=== PATIENT | female | born 1990 | race African-American/Black ===

== ENCOUNTER 2019-09-05 19:55 | Emergency (ER) | payer SELFPAY ==
--- NOTE | ~2019-09-05 | CT_ITS ---
EXAMINATION: CT BRAIN W/O DATE: 09/05/2019 21:47 INDICATION: Dizziness. Syncope. TECHNIQUE: Computed tomography (CT) of the head was performed without intravenous contrast. The dose- length product was 605.33 mGy-cm. The mA was adjusted according to patient size. Iterative reconstruc tion technique was employed. COMPARISON: No prior studies for comparison. FINDINGS: Normal brain parenchymal volume for age. Normal vaughan-white differentiation. No acute intrac ranial hemorrhage, infarction, mass or mass effect. No ventriculomegaly or midline shift. Midline sagittal images demonstrate a normal corpus callosum, c raniovertebral junction and sella turcica. Basilar cisterns are patent. Paranasal sinuses and mastoids are pneumatized. No depressed skull fractures. IMPRESSION: 1. No acute intracranial abnormality. Reviewed, dictated and finalized at location A.
[2019-09-05 20:02] VITALS: BP 113/62; PULSE 58; RESP 16; TEMP 36.9; O2SAT 100
--- NOTE | 2019-09-05 20:04 | ECG_ITS ---
Measurements Intervals [place] Rate: 51 P: -17 SC: 146 QRS: 64 QRSD: 85 T: 57 QT: 379 QTc: 350 Interpretive Statements SINUS OR ECTOPIC ATRIAL BRADYCARDIA BASELINE ARTIFACT- I, III, AVL BORDERLINE ECG Electronically Signed On 09-06-2019 6:48:40 CDT by Buzz Falk D.O.
[2019-09-05 20:17] LABS: Basophils Percent Auto 0.6 % (0.2-1.2); Eosinophils Absolute Auto 0.1 K/mm3 (0-0.3); Eosinophils Percent Auto 1.2 % (0-4.4); Hematocrit 38.5 % (37.0-47.0); Hemoglobin 12.7 g/dL (12.0-15.0); Immature Granulocyte Absolute 0.02 K/mm3 (0.00-0.031); Immature Granulocyte Percent A 0.3 % (0-0.5); Lymphocytes Absolute Auto 1.57 K/mm3 (0.9-3.2); Lymphocytes Percent Auto 23.1 % (18.3-44.2); Mean Corpuscular Hemoglobin 31.1 pg (26-34); Mean Corpuscular Volume 94.1 fl (80-100); Mean Platelet Volume 9.4 fl (7.4-10.4); Monocytes Absolute Auto 0.5 K/mm3 (0.1-0.6); Monocytes Percent Auto 7.2 % (2.6-8.5); Neutrophils Absolute Auto 4.6 K/mm3 (1.3-6.7); Neutrophils Percent Auto 67.6 % (45.5-73.1); Platelet Count Result 302 k/mm3 (150-375); Red Blood Count 4.09 M/mm3 (4.2-5.4); Red Cell Distribution Width 13.2 % (11.5-14.5); White Blood Count 6.8 K/mm3 (4.5-10.0)
[2019-09-05 20:38] LABS: Blood Urea Nitrogen 10 mg/dL (7-17); Carbon Dioxide 22 mmol/L (22-30); Chloride 107 mmol/L (98-107); Estimated CRCL calculation 91 ml/min; Estimated Glomerular Filt Rate > 60; Glucose 95 mg/dL (65-105); Potassium 3.8 mmol/L (3.4-5.0); Sodium 135 mmol/L (137-145)
[2019-09-05 21:27] VITALS: BP 117/74
[2019-09-05 21:28] VITALS: BP 112/67; BP 117/74; PULSE 65; PULSE 67
[2019-09-05] MEDS: MECLIZINE HCL 25 MG TABLET PO (21:39)
[2019-09-05] MEDS: SODIUM CHLORIDE 0.9% IV 1,000 ML 999 ML (21:48)
--- NOTE | 2019-09-05 23:01 | ED.DIZZY ---
HPI - Dizziness General Chief Complaint: Syncope Stated Complaint: passed out at work, med release Time Seen by Provider: 09/05/19 21:23 History of Present Illness HPI Narrative: Patient is a 28-year-old female who presents ER after developing dizziness and losing consciousness at work. Patient reports she felt rotational dizziness and flushed and then people heard her hit the floor. She is confident she did lose consciousness but briefly. She has had intermittent symptoms of dizziness and flushed feeling over the last week where she will get nauseated. Symptoms are worsened by leaning forward or rolling over. Symptoms are also worse when leaning to the right while talking on the phone. Patient reports mild pain to left side of her head after striking it on the ground. Related Data Allergies Allergy/AdvReac Type Severity Reaction Status Date / Time No Known Allergies Allergy Unknown Verified 09/05/19 19:57 Review of Systems Review of Systems: All systems reviewed & are unremarkable except as noted in HPI and below Constitutional: Constitutional: Denies chills, Denies fever(s) and Denies weakness ENT: Reports dizziness, Denies nasal congestion and Denies sore throat Cardiovascular: Cardiovascular: Denies chest pain and Denies radiating jaw, neck or arm pain Neurologic: Reports dizziness, Reports syncope, Denies headache(s), Denies focal weakness and Denies numbness PMFSH Past Medical History Medical History (Updated 09/05/19 @ 23:06 by Mauricio Marcano MD) History of bipolar disorder Surgical History Surgical History (Updated 09/05/19 @ 23:03 by Mauricio Marcano MD) History of cholecystectomy Social History Social History Smoking status: Never smoker Alcohol intake: current Exam Narrative: Exam Narrative: GENERAL: Well-appearing, well-nourished, and in no acute distress. HEAD: Normocephalic, atraumatic. EYES: PERRLA and EOMI. ENT: Mucous membranes moist. TMs normal bilaterally and ear canals free of cerumen. CHEST: Clear to auscultation. No respiratory distress. HEART: Regular rate and rhythm. Normal peripheral pulses. ABDOMEN: Soft, nontender, nondistended. EXTREMITIES: Normal range of motion. No edema. NEURO: Alert and oriented x3. PSYCH: Normal mood and affect. Course Course Emergency Course: Symptoms resolved with meclizine. Feels much better. Discharge home with supportive therapy. Vital Signs Vital signs: Vital Signs Temperature 98.4 F 09/05/19 20:02 Pulse Rate 58 L 09/05/19 20:02 Respiratory Rate 16 09/05/19 20:02 Blood Pressure 113/62 09/05/19 20:02 Pulse Oximetry 100 09/05/19 20:02 Temperature 98.4 F 09/05/19 20:02 Pulse Rate 67 09/05/19 21:28 Respiratory Rate 16 09/05/19 20:02 Blood Pressure 112/67 09/05/19 21:28 Pulse Oximetry 100 09/05/19 20:02 MDM - Dizziness Lab Data Result diagrams: 09/05/19 20:07 09/05/19 20:07 Labs: Lab Results 09/05/19 09/05/19 Range/Units 20:07 20:07 WBC 6.8 (4.5-10.0) K/mm3 RBC 4.09 L (4.2-5.4) M/mm3 Hgb 12.7 (12.0-15.0) g/dL Hct 38.5 (37.0-47.0) % MCV 94.1 (80-100) fl MCH 31.1 (26-34) pg MCHC 33.0 (32-36) g/dl RDW 13.2 (11.5-14.5) % Plt Count 302 (150-375) k/mm3 MPV 9.4 (7.4-10.4) fl Immature Gran % (Auto) 0.3 (0-0.5) % Neut % (Auto) 67.6 (45.5-73.1) % Lymph % (Auto) 23.1 (18.3-44.2) % [place] % (Auto) 7.2 (2.6-8.5) % Eos % (Auto) 1.2 (0-4.4) % Baso % (Auto) 0.6 (0.2-1.2) % Lymph # (Auto) 1.57 (0.9-3.2) K/mm3 [place] # (Auto) 0.5 (0.1-0.6) K/mm3 Eos # (Auto) 0.1 (0-0.3) K/mm3 Baso # (Auto) 0.0 (0.0-0.1) K/mm3 Abs Immat Gran (auto) 0.02 (0.00-0.031) K/mm3 Absolute Neuts (auto) 4.6 (1.3-6.7) K/mm3 Absolute Nucleated RBC 0.0 (0.0-0.012) K/mm3 Nucleated RBC % 0.0 (0.0-0.2) % Sodium 135 L (137-145) mmol/L Potassium 3.8 (3.4-5.0) mmol/L Chloride 107 (98-107) mmol/L
[2019-09-05 23:15] VITALS: BP 126/80; PULSE 74; RESP 18; O2SAT 100
== END 2019-09-05 23:16 | disposition home or self-care (01) ==
PROVIDERS: Emergency Provider Emergency Medicine
DX: R42 Dizziness and giddiness (principal); R94.31 Abnormal electrocardiogram [ECG] [EKG]
CPT/HCPCS: 36415; 70450; 80048; 81025; 85025; 93005; 96360; 99284; A9270; J7030